=== PATIENT | male | born 1965 | race American Indian/Alaskan Native ===

== ENCOUNTER 2021-10-01 12:53 | Emergency (ER) | payer BC, OTHER ==
[~2021-10-01] VITALS: Ht 188 cm; Wt 100.2 kg
[~2021-10-01 12:53] MED LIST: ATORVASTATIN CA10 MG PO; GLIPIZIDE10 MG PO; LISINOPRIL10 MG PO; MULTIVITAMINS1 EAC7 PO; VITAMIN B-12500 MCG PO
[2021-10-01] MEDS ORDERED: HYDROCHLOROTH12.5 M1 PO (14:14)
== END 2021-10-01 17:20 | disposition home or self-care (01) ==
LOC: ED 12:53
DX: U07.1 COVID-19 (principal); Z23 Encounter for immunization; I10 Essential (primary) hypertension; E11.9 Type 2 diabetes mellitus without complications; J45.909 Unspecified asthma, uncomplicated; Z87.891 Personal history of nicotine dependence; Z91.018 Allergy to other foods; Z79.899 Other long term (current) drug therapy
CPT/HCPCS: 99283-25; M0243; Q0244